=== PATIENT | male | born 1965 | race Caucasian/White ===

== ENCOUNTER → 2024-12-28 | Outpatient (CLI) | payer SELFPAY ==
[2024-12-28 12:23] LABS: Absolute Lymphocyte Count 1.66 X10^3/uL (0.83-4.51); Absolute Neutrophil Count 3.3 X10^3/uL (2.0-7.7); Basophil# 0.05 X10^3/uL; Basophil% 0.9 % (0-1); Eosinophil# 0.19 X10^3/uL; Eosinophils% 3.4 % (0-5); Hematocrit 45.1 % (40-54); Lymphocyte # 1.66 X10^3/ul (0.83-4.51); Lymphocyte % 29.3 % (19-41); Mean Corp Hgb Conc 33.3 g/dL (32-36); Mean Corpuscular Hgb 30.5 pg (27.0-32.0); Mean Corpuscular Volume 91.7 fL (80-94); Mean Platelet Vol. 10.4 fl (6.2-12.0); Monocyte# 0.42 X10^3/uL; Monocyte% 7.4 % (0-10); NRBC Flagged by Analyzer 0 % (0-5); Neutrophil # 3.33 X10^3/uL (2.7-7.7); Neutrophil % 58.6 % (47-70); Platelet Count 240 K/mm3 (150-450); RBC Distribution Width CV 13.4 % (11.6-14.6); RBC Distribution Width SD 45.5 fl (35.1-43.9); Red Blood Count 4.92 M/mm3 (4.6-6.2); White Blood Count 5.7 K/mm3 (4.4-11.0)
[2024-12-28 13:10] LABS: Cholesterol 240 mg/dL (<=200); High Density Lipoprotein 62 mg/dL; Low Density Lipoprotein Calc. 160 mg/dL; Triglycerides 93 mg/dL; Very Low Density Lipoprotein 19 mg/dL (5-40); cholesterol:hdl ratio screen 3.89
[2024-12-28 13:29] LABS: ALB/GLOB Ratio 1.8 RATIO (0.9-2.4); AST(SGOT) 24 U/L (<=37); Alanine Aminotransfer ALT/SGPT 19 U/L (<=46); Albumin, Serum 4.7 g/dL (3.5-5.0); Alkaline Phosphatase 78 U/L (40-129); Anion Gap 12 (5-15); BUN 18 mg/dL (4-19); Calcium,Total 9.8 mg/dL (7.6-11.0); Carbon Dioxide 25.6 mmol/L (21.0-32.0); Chloride 102 mmol/L (98-108); EST Glomerular Filtration Rate 74 (>60); Globulin 2.7 g/dL (2.2-4.2); Glucose 96 mg/dL (70-99); PSA,Total - Annual Screen 0.86 ng/mL (0.02-4.00); Potassium 4.3 mmol/L (3.3-5.1); Protein, Total 7.4 g/dL (5.9-8.4); Sodium Level 139 mmol/L (133-145); Thyroid Stim Hormone (TSH) 0.429 uIU/mL (0.300-4.200); Total Bilirubin 1.73 mg/dL (0.00-1.30); Vitamin B12 1093 pg/mL (180-914); Vitamin D,25 Hydroxy 64.4 ng/mL (30-100)
[2024-12-28 13:39] LABS: BUN/Creat Ratio 16.5 RATIO (10-20); Creatinine, Serum 1.11 mg/dL (0.70-1.20)
--- OUTSIDE RECORDS SUMMARY | 2024-12-28 18:23 | XMS RPT_ITS | CCD ---
Author Organization [facility] Care Team Providers Care Prosthetist Name Role Phone MAUREEN NEWELL (PA) Unavailable Unavailab CARLOS Kat (RURAL MAIL CONTRACTOR) Unavailable Unavailable MAUREEN NEWELL (PA) Unavailable Unavailab MAUREEN Cyr (PA) Unavailable Unavailab le JABIER HARRIS Unavailable Unavailable Primay Care Physicia, No Unavailable Unavail able Michael Daily Primary Care Provider [phone] Problems Active Problems Problem Classification Problem Date Documented Date Episodic/Chronic Disorders usually diagnosed in infancy, childhood, or adolescence (1 source) Attention deficit hyperactivity disorder, predominantly inattentive type; Translations: [Other specified behavioral and emotional disorders with onset usually occurring in childhood and adolescence] Onset: 01-14-2008 02-26-2010 Chronic Unclassified (1 source) Unknown / UNK(Unknown) Onset: 07-11-2017 Past or Other Problems Problem Classification Problem Date Documented Da te Episodic/Chronic Conditions associated with dizziness or vertigo (1 source) Peripheral vertigo; Translations: [Other peripheral vertigo, unspecified ear] Onset: 11-18-2007 02-26-2010 Episodic Other connective tissue disease (3 sources) Other specified soft tissue disorders; Translations: [Pain in left leg] Onset: 07-08-2017 Episodic Other skin disorders (1 source) Other skin changes; Translations: [Other skin changes] Onset: 07-14-2017 Episodic Skin and subcutaneous tissue infections (1 source) Cellulitis, unspecified; Translations: [Cellulitis, unspecified] Onset: 07-14-2017 Episodic Unclassified (1 source) Other specified abnormal findings of blood chemistry; Translations: [Other specified abnormal findings of blood chemistry] Onset: 08-08-2017 Episodic Results Test Name Value Interpretation Reference Range Facility Basic Metabolic Panlon 08-08 Anion gap 16 mmol/L Normal 9-18 [facility] Comment on above: Performed By: #### B MP ####[place] [address] [place], [place] [phone] Calcium 9.4 mg/dL Normal 8.5-10.2 [facility] Comment on above: Performed By: #### B MP ####[place] [address] [address] [place], [place] [phone] Chloride 100 mmol/L Normal 97-105 [facility] Comment on above: Performed By: #### B MP ####[place] [address] [address] [place], [place] [phone] CO2 25 mmol/L Normal 22-30 [facility] Comment on above: Performed By: #### B MP ####[address] [phone] Creatinine 1.00 mg/dL Normal 0.73-1.22 [facility] Comment on above: Performed By: #### B MP ####[address] [phone] eGFR (non-black) mL/min/{1.73_m2} Normal [facility] Comment on above: Performed By: #### B MP ####[address] [phone] Result Comment: eGFR (Estimated GFR) Units of measure: mL/min/1.73 meters squaredeGFR is derived from the reexpressed MDRD Study equation using the following parameters: serum creatinine, age, gender and race. The creatinine assay has been calibrated to be traceable to IDMS.An eGFR <60 mL/min/1.73m2 for >3 months is consistent with chronic kidney disease. Refer to KDOQI guidelines for clinical interpretation.In patients with unstable renal function, e.g. those with acute kidney injury, the eGFR may not accurately reflect actual GFR. Glucose mass conc 79 mg/dL Normal 74-99 [facility] Comment on above: Result Comment: The [place] Diabetes Association (ADA) provides guidance for cutoff values for fasting glucose and random glucose. The ADA defines fasting as no caloric intake for at least 8 hours. Fasting plasma glucose results between 100 to 125 mg/dL indicate increased risk for diabetes (prediabetes).Fasting plasma glucose results greater than or equal to 126 mg/dL meet the criteria for diagnosis of diabetes. In the absence of unequivocal hyperglycemia, results should be confirmed by repeat testing. In a patient with classic symptoms of hyperglycemia or hyperglycemic crisis, random plasma glucose results greater than or equal to 200 mg/dL meet the criteria for diagnosis of diabetes.Reference: Standards of Medical Care in Diabetes 2016, [place] Diabetes Association. Diabetes Care. 2016.39(Suppl 1). Performed By: #### B MP ####[address] [phone] Potassium molar conc 4.3 mmol/L Normal 3.7-5.1 [facility] Comment on above: Performed By: #### B MP ####[address] [phone] Sodium 141 mmol/L Normal 136-144 [facility] Comment on above: Performed By: #### B MP ####[address] [phone] Urea nitrogen 17 mg/dL Normal 9-24 [facility] Comment on above: Performed By: #### B MP ####[address] [phone] CBC and Differentialon 07-14 Abs Baso <0.03 Normal <0.11 [facility] Comment on above: Performed By: #### C BCDIF, CMP ####[address] [phone] Abs [place] 0.43 k/uL Normal <0.87 [facility] Comment on above: Performed By: #### C BCDIF, CMP ####[address] [phone] Abs Neut 7.17 k/uL Normal 1.45-7.50 [facility] Comment on above: Performed By: #### C BCDIF, CMP ####[facility] [address] Ave[place], [place] [phone] Basophils/100 WBC Auto (Bld) 0.2 % Normal [facility] Comment on above: Performed By: #### C BCDIF, CMP ####[facility] [place] [phone] DTYPE Auto Diff Normal [facility] Comment on above: Performed By: #### C BCDIF, CMP ####[facility] [place] [phone] Eosinophils 10*3/uL Normal <0.46 [facility] Comment on above: Performed By: #### C BCDIF, CMP ####[facility] [place] [phone] Eosinophils/100 leukocytes 0.2 % Normal [facility] Comment on above: Performed By: #### C BCDIF, CMP ####[facility] [place] [phone] Erythrocyte distribution width Auto Ratio (RBC) 12.7 % Normal 11.5-15.0 [facility] Comment on above: Performed By: #### C BCDIF, CMP ####[facility] [place] [phone] Erythrocytes (RBC) 10*6/uL Normal <0.01 [facility] Comment on above: Performed By: #### C BCDIF, CMP ####[facility] [address]leveland[address] [place] [phone] Erythrocytes (RBC) 0.0 /100 WBC Normal 0 [facility] Comment on above: Performed By: #### C BCDIF, CMP ####[facility] [address] Ave[address]levelandBr[address] [place] [phone] Erythrocytes (RBC) 4.47 10*6/uL Normal 4.20-6.00 [facility] Comment on above: Performed By: #### C BCDIF, CMP ####[address] AveCSarah [address] [phone] Hematocrit (HCT) 41.7 % Normal 39.0-51.0 [facility] Comment on above: Performed By: #### C BCDIF, CMP ####[address] [phone] Hemoglobin mass conc (Bld) 13.5 g/dL Normal 13.0-17.0 [facility] Comment on above: Performed By: #### C BCDIF, CMP ####[place] [phone] Lymphocytes 1.19 10*3/uL Normal 1.00-4.00 [facility] Comment on above: Performed By: #### C BCDIF, CMP ####[address] [phone] Lymphocytes/100 leukocytes 13.5 % Normal [facility] Comment on above: Performed By: #### C BCDIF, CMP ####[place] [phone] MCH 30.2 pG Normal 26.0-34.0 [facility] Comment on above: Performed By: #### C BCDIF, CMP ####[address] [phone] MCHC mass conc (RBC) 32.4 g/dL Normal 30.5-36.0 [facility] Comment on above: Performed By: #### C BCDIF, CMP ####[place] [address] [place] [phone] MCV 93.3 fL Normal 80.0-100.0 [facility] Comment on above: Performed By: #### C BCDIF, CMP ####[facility], [place] [phone] Monocytes/100 leukocytes 4.9 % Normal [facility] Comment on above: Performed By: #### C BCDIF, CMP ####[facility], [place] [phone] Neutrophils/100 WBC Auto (Bld) 81.2 % Normal [facility] Comment on above: Performed By: #### C BCDIF, CMP ####[facility], [place] [phone] Platelet mean volume (PMV) 10.4 fL Normal 9.0-12.7 [facility] Comment on above: Performed By: #### C BCFLORF, CMP ####[place] [address], [place] [phone] Platelets 311 10*3/uL Normal 150-400 [facility] Comment on above: Performed By: #### C JOHNATHANF, CMP ####[facility], [place] [phone] WBC (Leukocytes) 8.83 10*3/uL Normal 3.70-11.00 [facility] Comment on above: Performed By: #### C BCFLORF, CMP ####[facility], [place] [phone] Hannah 07-14-2017 CNOV Office Visit (FAMPWS) WILMAR WAGNER ([id number]) [address] [facility] Provider Yafaomssld98/18/17 3:00 PM MAUREEN NEWELL) FAMPWS During your visit today, we recorded the following information about you: Pulse Respiration Blood pressure Weight 54/minute 14/minute 112/68 96.2 kgLELAND MCKINNEY 07/14/2017 3:59 PM SignedChief ComplaintPatient presents with:RecheckHPIAllen John Wagner is a 51 year old male who presents here today for Recheck oncellulitis.Had US done at [facility] that was normalSaw UC on the 07/11 and was dx as cellulitis and given Keflex. Dx wasquestionable which is why he was asked to make follow up.Patient reports that prior to the keflex he had a lot of left leg swelling andpain. Some redness/yellow tinged. Has had some improvement with the keflex butstill having some swelling.Patient brought in pictures and looked more like ecchymosis coloringOn Friday patient developed a distal bruise on medial left ankle/heel. Heknows he has not injured or hit his foot on anything.He has not had any other abnormal bruising or bleeding.Past medical history, appointments, medications, allergies reviewed.Previous Medical HistoryNo past medical history on file.Previous Surgical HistoryNo past surgical history on file.Family HistoryNo family history on file.Patient AllergiesALLERGIESNo Known AllergiesCurrent MedicationsCurrent Outpatient Prescriptions on File Prior to Visit:cephALEXin (KEFLEX) 500 mg capsule Take 1 capsule by mouth four times daily for10 days. FOR 10 DAYSNo current facility-administered medications on file prior to visit.Social HistorySocial History Marital status: Spouse name: Years of education: Number of children:Social History Main Topics Smoking status: Former Smoker Packs/day: 0.00 Years: 0.00 Smokeless status: Never Used Comment: quit 25 year ago Alcohol use: Yes Comment: wine occassionallyReview of SymptomsREVIEW OF SYSTEMSGENERAL: No weight loss, malaise or feversNECK: Negative for lumps, goiter, pain and significant neck swellingRESPIRATORY: Negative for cough, hemoptysis, wheezing, COPD, dyspnea orshortness of breathCARDIOVASCULAR: Negative for chest pain, leg swelling, hypertension, CHF orpalpitationsHEMATOLOGY/L YMPHOLOGY: See HPI, bruise on left ankle and possible largebruising on calfENDOCRINE: Negative for cold or heat intolerance, polyuria, polydipsia andgoiterEXAM:BP 112/68 Pulse (!) 54 Resp 14 Wt 96.2 kg (212 lb) BMI 26.86 kg/b0Hnztqum Appearance: Well appearing, alert, in no acute distress, well-hydrated,well nourished..Lungs: Lungs clear to auscultation. No wheezing, rhonchi, rales.Heart: RRR without murmur, gallop, or rubs. No ectopy.Extremities: Left leg with swelling noted compared to R. No pitting edema.Minimal redness. Appears more like a healing bruise with light black/blue andyellow coloring noted. Recent ecchymosis noted on left medial ankle just belowmedial malleolus.Peripheral Pulses: Normal and equal b/lHealth Maintenance ListDIABETES SCREEN due on 02/24/2013TETANUS due on 07/28/2013LIPID SCREEN due on 02/24/2015INFLUENZA CompletedData reviewedUS 07/08/17- normal. No DVTASSESSMENT/PLAN:1. Cellulitis of skin - ICD9: 682.9, ICD10: L03.90 (primary diagnosis)- Continue treatment with Cephalaxin (Keflex)- CBC + DIFF- COMP METABOLIC PANEL2. Left leg swelling - ICD9: 729.81, ICD10: M79.89See above.- Will continue to treat as cellulitis however will check labs today as well.Patient is self pay so Consider further workup only if no improvement.- patient is to establish with PCP at earliest convenience3. Abnormal bruising - ICD9: 782.9, ICD10: R23.8- New concern. Will start with basic labs and consider further workup asneeded.- CBC + DIFF- COMP METABOLIC PANELI want patient to finish out the antibiotic and return in 1 week for recheck ifsymptoms have not completely resolved.Labs todayPlease establish with Yari SHORT Provider: CARLOS CHAN ([facility]) [[id number]]Allergies As of Date: 07/14/2017(No Known Allergies)Date Reviewed: 07/14/2017Reviewed by: Jo Ramsay Ma - Fully AssessedReason for Visit: Recheck [92]Primary Visit Diagnosis:Cellulitis of skin [L03.90] Other Visit Diagnoses:Left leg swelling [M79.89] Abnormal bruising [R23.8]Order(s):CBC + DIFF [SQCBCDIF] Order #: [id number] FUTURE COMP METABOLIC PANEL [SQCMP] Order #: [id number] FUTUREPrescriptions as of 07/14/2017 Sig: CEPHALEXIN 500 MG CAPSULE Take 1 capsule by mouth four *Problem List As Of Date 07/14/2017 Noted Resolved Unspecified Peripheral Vertigo [H81.399] INVALID FOR* Attention Deficit Disorder without Mention of H*INVALID FOR*Disposition: Return if symptoms worsen or fail to improve.Follow-up and Disposition History RecordedEncounter Number: [id number] Status:Closed by MAUREEN NEWELL on 07/14/17 Normal [facility] Comp Metabolic Panelon 07-14 Alanine aminotransferase (ALT) 14 U/L Normal 10-54 [facility] Comment on above: Performed By: #### C BCDIF, CMP ####[place] [phone] Albumin 4.6 g/dL Normal 3.9-4.9 [facility] Comment on above: Performed By: #### C BCDIF, CMP ####[place] [phone] Alkaline phosphatase (ALP) 74 U/L Normal 36-108 [facility] Comment on above: Performed By: #### C BCDIF, CMP ####[place] [phone] Anion gap 14 mmol/L Normal 9-18 [facility] Comment on above: Performed By: #### C BCDIF, CMP ####[place] [phone] Aspartate aminotransferase (AST) 20 U/L Normal 14-40 [facility] Comment on above: Performed By: #### C BCDIF, CMP ####[place] [phone] Bilirubin (total) 0.7 mg/dL Normal 0.2-1.3 [facility] Comment on above: Performed By: #### C BCALYSHA, CMP ####[place] [address] [place] [phone] Calcium 9.5 mg/dL Normal 8.5-10.2 [facility] Comment on above: Performed By: #### C BCDIF, CMP ####[place] [address] [phone] Chloride 102 mmol/L Normal 97-105 [facility] Comment on above: Performed By: #### C KIRA, CMP ####[place] [address] [place] [phone] CO2 23 mmol/L Normal 22-30 [facility] Comment on above: Performed By: #### C BCFLORF, CMP ####[place] [address] [place] [phone] Creatinine 1.33 mg/dL High 0.73-1.22 [facility] Comment on above: Performed By: #### C KIRA, CMP ####[place] [address] [place] [phone] eGFR (non-black) 57 . Normal [facility] Comment on above: Result Comment: eGFR (Estimated GFR) Units of measure: mL/min/1.73 meters squaredeGFR is derived from the reexpressed MDRD Study equation using the following parameters: serum creatinine, age, gender and race. The creatinine assay has been calibrated to be traceable to IDMS.An eGFR <60 mL/min/1.73m2 for >3 months is consistent with chronic kidney disease. Refer to KDOQI guidelines for clinical interpretation.In patients with unstable renal function, e.g. those with acute kidney injury, the eGFR may not accurately reflect actual GFR. Performed By: #### C BCDIF, CMP ####[place] [address] [place] [phone] eGFR (non-black) mL/min/{1.73_m2} Normal [facility] Comment on above: Performed By: #### C BCDIF, CMP ####[place] [address] [place], [place] [phone] Glucose mass conc 104 mg/dL High 74-99 [facility] Comment on above: Result Comment: The [place] Diabetes Association (ADA) provides guidance for cutoff values for fasting glucose and random glucose. The ADA defines fasting as no caloric intake for at least 8 hours. Fasting plasma glucose results between 100 to 125 mg/dL indicate increased risk for diabetes (prediabetes).Fasting plasma glucose results greater than or equal to 126 mg/dL meet the criteria for diagnosis of diabetes. In the absence of unequivocal hyperglycemia, results should be confirmed by repeat testing. In a patient with classic symptoms of hyperglycemia or hyperglycemic crisis, random plasma glucose results greater than or equal to 200 mg/dL meet the criteria for diagnosis of diabetes.Reference: Standards of Medical Care in Diabetes 2016, [place] [employer]. Diabetes Care. 2016.39(Suppl 1). Performed By: #### C BCDIF, CMP ####[facility] [place] [address] [phone] Potassium molar conc 4.3 mmol/L Normal 3.7-5.1 [facility] Comment on above: Performed By: #### C BCDIF, CMP ####[facility] [place], [place] [phone] Protein 7.4 g/dL Normal 6.3-8.0 [facility] Comment on above: Performed By: #### C BCDIF, CMP ####[facility] [place], [place] [phone] Sodium 139 mmol/L Normal 136-144 [facility] Comment on above: Performed By: #### C BCDIF, CMP ####[facility] [place], [place] [phone] Urea nitrogen 22 mg/dL Normal 9-24 [facility] Comment on above: Performed By: #### C BCDIF, CMP ####[facility] [address] [place], [place] [phone] PROGRESSon 07-14-2017 PROGRESS HNO ID: [id number] thor: Maureen Christensen) Wayne: (none)Author Type: Physician AssistantType: Progress NotesFiled: 07/14/2017 3:59 PMNote Text:Chief ComplaintPatient presents with:RecheckHPIAllen John Wagner is a 51 year old male who presents here today for Recheckon cellulitis.Had US done at [facility] that was normalSaw UC on the 07/11 and was dx as cellulitis and given Keflex. Dx wasquestionable which is why he was asked to make follow up.Patient reports that prior to the keflex he had a lot of left leg swellingand pain. Some redness/yellow tinged. Has had some improvement with thekeflex but still having some swelling.Patient brought in pictures and looked more like ecchymosis coloringOn Friday patient developed a distal bruise on medial left ankle/heel.He knows he has not injured or hit his foot on anything.He has not had any other abnormal bruising or bleeding.Past medical history, appointments, medications, allergies reviewed.Previous Medical HistoryNo past medical history on file.Previous Surgical HistoryNo past surgical history on file.Family HistoryNo family history on file.Patient AllergiesALLERGIESNo Known AllergiesCurrent MedicationsCurrent Outpatient Prescriptions on File Prior to Visit:cephALEXin (KEFLEX) 500 mg capsule Take 1 capsule by mouth four timesdaily for 10 days. FOR 10 DAYSNo current facility-administered medications on file prior to visit.Social HistorySocial History Marital status: Spouse name: Years of education: Number of children:Social History Main Topics Smoking status: Former Smoker Packs/day: 0.00 Years: 0.00 Smokeless status: Never Used Comment: quit 25 year ago Alcohol use: Yes Comment: wine occassionallyReview of SymptomsREVIEW OF SYSTEMSGENERAL: No weight loss, malaise or feversNECK: Negative for lumps, goiter, pain and significant neck swellingRESPIRATORY: Negative for cough, hemoptysis, wheezing, COPD, dyspnea orshortness of breathCARDIOVASCULAR: Negative for chest pain, leg swelling, hypertension, CHFor palpitationsHEMATOLOGY/LYM PHOLOGY: See HPI, bruise on left ankle and possible largebruising on calfENDOCRINE: Negative for cold or heat intolerance, polyuria, polydipsia andgoiterEXAM:BP 112/68 Pulse (!) 54 Resp 14 Wt 96.2 kg (212 lb) BMI 26.86 kg/z8Vatvfwq Appearance: Well appearing, alert, in no acute distress,well-hydrated, well nourished..Lungs: Lungs clear to auscultation. No wheezing, rhonchi, rales.Heart: RRR without murmur, gallop, or rubs. No ectopy.Extremities: Left leg with swelling noted compared to R. No pitting edema.Minimal redness. Appears more like a healing bruise with light black/blueand yellow coloring noted. Recent ecchymosis noted on left medial anklejust below medial malleolus.Peripheral Pulses: Normal and equal b/lHealth Maintenance ListDIABETES SCREEN due on 02/24/2013TETANUS due on 07/28/2013LIPID SCREEN due on 02/24/2015INFLUENZA CompletedData reviewedUS 07/08/17- normal. No DVTASSESSMENT/PLAN:1. Cellulitis of skin - ICD9: 682.9, ICD10: L03.90 (primary diagnosis)- Continue treatment with Cephalaxin (Keflex)- CBC + DIFF- COMP METABOLIC PANEL2. Left leg swelling - ICD9: 729.81, ICD10: M79.89See above.- Will continue to treat as cellulitis however will check labs today aswell. Patient is self pay so Consider further workup only if noimprovement.- patient is to establish with PCP at earliest convenience3. Abnormal bruising - ICD9: 782.9, ICD10: R23.8- New concern. Will start with basic labs and consider further workup asneeded.- CBC + DIFF- COMP METABOLIC PANELI want patient to finish out the antibiotic and return in 1 week forrecheck if symptoms have not completely resolved.Labs todayPlease establish with PCPLELAND MCKINNEY Normal [facility] CNOVon 07-11-2017 CNOV Office Visit (WSTR) WILMAR WAGNER ([id number]) 1965 MDate Time Provider Nivoyzrmes70/15/17 5:30 PM CHEY ESPINOZA (ASHANTI) UCWSTR During your visit today, we recorded the following information about you: Temperature Pulse Respiration Blood pressure 97 degrees 76/minute 16/minute 112/70 Weight 95.7 kgChey Espinoza CNP, ROYCE 07/11/2017 6:33 PM SignedHPIPatient presents with:Swelling: left leg swelling knee to ankle x 9 days, has been on prednisone x 2daysDoppler ordered by Dr. Sapp Friday, negative for DVT at [facility].Standing all day exacerbated symptoms, elevating leg relieves symptomsDenies any otc treatment for symptoms.Review of SystemsConstitutional: Negative for chills and fever.Cardiovascular: Negative for chest pain and palpitations.Musculoskelet al: Left lower leg swollen, red, and tender x 9 daysAll other systems reviewed and are negative.No past medical history on file.No past surgical history on file.ALLERGIES Review of patient's allergies indicates no known allergies.MEDICATIONScephA LEXin (KEFLEX) 500 mg capsule Take 1 capsule by mouth four times daily for10 days. FOR 10 DAYSNo family history on file.Social HistorySubstance Use Topics- Smoking status: Never Smoker- Smokeless tobacco: Never Used- Alcohol use Not on filePhysical ExamConstitutional: He is well-developed, well-nourished, and in no distress.HENT:Head: Normocephalic.Eyes: Conjunctivae are normal.Neck: Normal range of motion.Cardiovascular: Intact distal pulses.Musculoskeletal: Left lower leg: He exhibits tenderness and swelling (moderate swellingwith increase warmth and mild blanching erythema). He exhibits no bonytenderness.Nursing note and vitals reviewed.ASSESSMENT/PLAN:1 . Left leg swelling - ICD9: 729.81, ICD10: M79.89 (primary diagnosis)-elevate lower ext.-Doppler negative 07/08 at [facility]-f/u with primary care [facility] for further eval/tx, pt wants all treatment as anoutpatient due to self pay, pt has no PCP, walked to [facility] to est with PCP aswell.2. Cellulitis of skin - ICD9: 682.9, ICD10: L03.90- mild- Begin treatment with Cephalaxin (Keflex)- No lymphangetic streaking, this was defined for patient to watch for and toseek medical care immediately if appears- Area of cellulitis defined with pen, seek further attention if this areacontinues to enlarge- Follow up for recheck in three days with Primary carePrescription instructions reviewed with patient as applicable. Patient advisedif symptoms do not improve or if symptoms worsen sooner, to contact theirprimary care physician. Potential red flag symptoms discussed with thepatient. Reviewed appropriate action plan to take if red flag symptoms occur.Patient agreeable to treatment plan.Chey Espinoza, CNPReferring Provider: SELF [[id number]]Allergies As of Date: 07/11/2017(No Known Allergies)Date Reviewed: 07/11/2017Reviewed by: Mari Jerry Ma - Fully AssessedReason for Visit: Swelling [205] Cmt: left leg swelling knee to ankle x 9 days, has been on prednisone x 2 daysReason For Visit History RecordedPrimary Visit Diagnosis:Left leg swelling [M79.89] Other Visit Diagnosis:Cellulitis of skin [L03.90]Order(s):cephALEXi n (KEFLEX) 500 mg capsuleTake 1 capsule by mouth four times daily for 10 days. FOR 10 DAYSDisp: 40 capsuleRfl: 0Prescriptions as of 07/11/2017 Sig: CEPHALEXIN 500 MG CAPSULE Take 1 capsule by mouth four *Problem List As Of Date 07/11/2017 Noted Resolved Unspecified Peripheral Vertigo [H81.399] INVALID FOR* Attention Deficit Disorder without Mention of H*INVALID FOR*Prescriptions ordered this encounter Disp Refills Start End CEPHALEXIN 500 MG CAPSULE 40 c* 0 07/11/2017 07/21/2017 Route: ORAL Sig: Take 1 capsule by mouth four times daily for 10 days. FOR 10 DAYSDisposition: Return if symptoms worsen or fail to improve.Follow-up and Disposition History RecordedEncounter Number: [id number] Status:Closed by CHEY ESPINOZA on 07/11/17 [facility] PRO[facility]ESSon 07-11-2017 PROGRESS HNO ID: [id number] thor: Chey Cao (Clerical Stock Inspector) Tal Espinozae: (none)Author Type: Nurse PractitionerType: Progress NotesFiled: 07/11/2017 6:33 PMNote Text:HPIPatient presents with:Swelling: left leg swelling knee to ankle x 9 days, has been on prednisonex [address] Sapp Friday, negative for DVT at [facility].Standing all day exacerbated symptoms, elevating leg relieves symptomsDenies any otc treatment for symptoms.Review of SystemsConstitutional: Negative for chills and fever.Cardiovascular: Negative for chest pain and palpitations.Musculoskelet al: Left lower leg swollen, red, and tender x 9 daysAll other systems reviewed and are negative.No past medical history on file.No past surgical history on file.ALLERGIES Review of patient's allergies indicates no known allergies.MEDICATIONScephA LEXin (KEFLEX) 500 mg capsule Take 1 capsule by mouth four timesdaily for 10 days. FOR 10 DAYSNo family history on file.Social HistorySubstance Use Topics- Smoking status: Never Smoker- Smokeless tobacco: Never Used- Alcohol use Not on filePhysical ExamConstitutional: He is well-developed, well-nourished, and in no distress.HENT:Head: Normocephalic.Eyes: Conjunctivae are normal.Neck: Normal range of motion.Cardiovascular: Intact distal pulses.Musculoskeletal: Left lower leg: He exhibits tenderness and swelling (moderateswelling with increase warmth and mild blanching erythema). He exhibits nobony tenderness.Nursing note and vitals reviewed.ASSESSMENT/PLAN:1 . Left leg swelling - ICD9: 729.81, ICD10: M79.89 (primary diagnosis)-elevate lower ext.-Doppler negative 07/08 at [facility]-f/u with primary care [facility] for further eval/tx, pt wants all treatment asan outpatient due to self pay, pt has no PCP, [facility]. Cellulitis of skin - ICD9: 682.9, ICD10: L03.90- mild- Begin treatment with Cephalaxin (Keflex)- No lymphangetic streaking, this was defined for patient to watch forand to seek medical care immediately if appears- Area of cellulitis defined with pen, seek further attention if thisarea continues to enlarge- Follow up for recheck in three days with Primary carePrescription instructions reviewed with patient as applicable. Patientadvised if symptoms do not improve or if symptoms worsen sooner, tocontact their primary care physician. Potential red flag symptomsdiscussed with the patient. Reviewed appropriate action plan to take ifred flag symptoms occur. Patient agreeable to treatment plan.Chey Espinoza, ROYCE Normal [facility] Venous Duplex Lower Extremit [facility] 07-08-2017 [facility] [address] [place], [place] [address]M[employer]og[employer] Duplex US, Okowfvwklb06/12/17 1447MR#: [id number] Acct: [id number]: WILMAR WAGNER Rep #: [id number]: 1965 51 From: Rajendra Nix MDAttending Dr: JABIER HARRIS Status: REG CLIOrdering Dr: Jabier Harris Date: 07/08/17Location: [facility] Sex: M CAdmitted:Reason For Study: LEG PAIN AND SWELLINGProcedure LEFTExam performed in department. GSV is normal.A preliminary report was called and/or faxed CFV is compressible, spontaneous, phasic,to Dr. Harris. competent, and demonstrates normalaugmentation.FV is compressible, spontaneous, phasic,competent and demonstrates normalaugmentation.POP V is compressible, spontaneous,phasic,compete nt and demonstrates normalaugmentation.T/P Trunk is compressible.PTV is compressible.LT PerV is compressible.Interpretatio n SummaryDeep veins of the left lower extremity are patent and compressible segmentally. There is noevidence of left lower extremity deep vein thrombosis. Valvular competence appears intactwithinthe proximal deep venous system on the left . The left greater saphenous vein appears patentandcompressible segmentally. Ordering Physician: JABIER HARRISPerformed By: Santa Phillips T 07/08/175Date Rajendra Nix MDCC: No Primary Care Physician; JABIER HARRIS Date Dictated: 07/08/17 1447Date Transcribed: 07/08/171854Transcriptionist:Iva Deras [facility] Encounters Encounter Date Encounter Type Care Provider Facility Start: 11-21-2021 End: 11-21-2021 Subsequent hospital visit by physician Provider [facility] Comment on above: PROVIA PRE EMP HAIR Start: 08-08-2017 End: 08-08-2017 Ambulatory MAUREEN NEWELL ([place]) [facility] Start: 07-14-2017 End: 07-14-2017 Ambulatory MAUREEN NEWELL ([place]) [facility] Start: 07-11-2017 End: 07-11-2017 Ambulatory MAUREEN NEWELL [facility] Start: 07-08-2017 Ambulatory JABIER HARRIS Facility:[facility] Procedures Date Procedure Procedure Detail Performing Clinician Start: 07-14-2017 Adult depression scr eening assessment Provider [facility] Plan of Treatment Date Care Activity Detail Author Start: 03-28-2022 Influenza vaccination INFLUENZA (Sea son Ended) [facility] Start: 08-08-2020 DIABETES SCREEN DIABET[facility] SCREEN [facility] Start: 07-14-2018 Adult depression scr eening assessment DEPRESSION SCREENING [facility] Start: 12-03-2017 SHINGRIX VACCINE (1 of 2) SHINGRIX V ACCINE (1 of 2) [facility] Start: 02-24-[address]EN [facility] Start: 12-03-2012 COLOGUARD (FIT-DNA) COLOGUARD (FIT-D NA) [facility] Start: 12-03-[address] [facility] Start: 12-03-2012 COLORECTAL CANCER SCREENING COLORECTAL CANCER SCREENING [facility] Start: 12-03-[address] COLONOGRAPHY [facility] Start: 12-03-2012 FECAL OCCULT BLOOD FECAL OCCULT BLOO D [facility] Start: 12-03-2012 SIGMOIDOSCOPY SIGMOIDOSCOPY [facility] Start: 07-29-2003 Urine microalbumin profile DTAP,TDAP ,TD (1 - Tdap) [facility] Start: 12-03-1985 HEPATITIS C SCREENING HEPATITIS C SC REENING [facility] Start: 12-03-1985 HIV SCREENING HIV SCREENING [facility] Start: 12-03-1972 COVID-19 VACCINE (1) COVID-19 VACCIN E (1) [facility] Immunizations Immunization Date Immunization Notes Care Provider Juan Carlos haroty 07-28-2003 tetanus and diphther ia toxoids, not adsorbed, for adult use Provider [facility] Work Phone: Payers Date Payer Category Payer Unknown [id number] Social History Date Type Detail Facility Start: 07-14-2017 Tobacco smoking stat us ALIS Ex-smoker [facility] Start: 07-14-2017 Tobacco use and exposure Smokeless tobacco non-user [facility] Start: 07-14-2017 Alcohol intake Current drinke r of alcohol (finding) [facility] Start: 07-14-2017 History SDOH Alcohol Comment wine occassionally [facility] Start: 07-14-2017 Tobacco Comment quit 25 year ago [facility] Start: 1965 Sex Assigned At Not on file C [facility] Summary Purpose Family History No Family History Records FoundNo Family History Records Found Advance Directives No Advanced Directives Records FoundNo Advanced Directives Records Found Additional Source Comments (unrecognized sect ion and content) No Status Records FoundNo Status Records Found INFORMATION SOURCE (unrecogn ized section and content) DATE CREATED AUTHOR 01/20/2018 [facility] DATE CREATED AUTHOR AUTHOR'S ORGANIZ ATION 01/20/2018 [facility] Source Comments (unrecognize d section and content) In the event this informatio n is protected by the Federal Confidentiality of Alcohol and Drug Abuse Patient Records regulations: The Federal rules restrict any use of the information to criminally investigate or prosecute any alcohol or drug abuse patient.[facility] Care Teams (unrecognized sec tion and content) Prosthetist Relationship Specialty Start Date End Date Michael Daily [facility] [address] [place] [address] PCP - General 05/21/02 FOR RECORDS PERTAINING TO PATIENTS WHO ARE OR HAVE BEEN ENROLLED IN A CHEMICAL DEPENDENCY/SUBSTANCEABUSE PROGRAM, SOME INFORMATION MAY BE OMITTED. This clinical summary was aggregated from multiple sources. Caution should be exercised in using it in the provision of clinical care. This summary normalizes information from multiple sources, and as a consequence, information in this document may materially change the coding, format and clinical context of patient data. In addition, data may be omitted in some cases. CLINICAL DECISIONS SHOULD BE BASED ON THE PRIMARY CLINICAL RECORDS. [facility] [employer] [facility]. provides no warranty or guarantee of the accuracy or completeness of information in this document.
== END | disposition home or self-care (01) ==
LOC: MTLAB 09:35
PROVIDERS: PCP Family Medicine; Referring Provider Family Medicine; Visit Provider Family Medicine
DX: Z00.00 Encounter for general adult medical examination without abnormal findings (principal); R53.83 Other fatigue; Z12.5 Encounter for screening for malignant neoplasm of prostate
CPT/HCPCS: 36415; 80053; 80061; 82306; 82607; 84153; 84403; 84443; 85025; G0103